=== PATIENT | male | born 1980 | race Caucasian/White ===

== ENCOUNTER 2018-05-05 11:10 | Emergency (ER) | payer BC, OTHER ==
[2018-05-05 11:38] VITALS: BP 117/78
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
== END 2018-05-05 12:45 | disposition home or self-care (01) ==
LOC: LL.ED 11:10
DX: S00.12XA Contusion of left eyelid and periocular area, initial encounter (principal); S40.012A Contusion of left shoulder, initial encounter; S50.02XA Contusion of left elbow, initial encounter; S50.01XA Contusion of right elbow, initial encounter; S80.02XA Contusion of left knee, initial encounter; S80.01XA Contusion of right knee, initial encounter; S40.022A Contusion of left upper arm, initial encounter; H61.23 Impacted cerumen, bilateral; Z79.899 Other long term (current) drug therapy; F17.210 Nicotine dependence, cigarettes, uncomplicated; Y04.0XXA Assault by unarmed brawl or fight, initial encounter
CPT/HCPCS: 99283